=== PATIENT | female | born 2000 | race Caucasian/White ===

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

== ENCOUNTER 2018-07-29 12:01 | Outpatient (CLI) | payer OTHER ==
--- NOTE | 2018-07-29 12:36 | RAD ---
TWO VIEWS LEFT TIBIA AND FIBULA: Date: 07-29-18 History: Left lower extremity bruising and swelling. Pain to touch, left lower extremity. Patient fel l one year ago and hit chin. FINDINGS: There is no evidence of fracture, dislocation, or other osseous abnormality involving the left tibia or fibula. IMPRESSION: No acute osseous abnormality. POS: [facility]
== END 2018-07-29 12:02 | disposition home or self-care (01) ==
LOC: SCSRAD 12:01
PROVIDERS: ATTEND Family Medicine
DX: M79.662 Pain in left lower leg (principal)